=== PATIENT | female | born 1975 | race African-American/Black ===

== ENCOUNTER 2017-07-01 16:02 | Emergency (ER) | payer OTHER ==
[~2017-07-01] VITALS: Ht 165.1 cm; Wt 122.3 kg
[~2017-07-01 16:02] MED LIST: BACTRIM,SEPT1 TABLET PO; COZAAR100 MG PO; ENDOCET 5-3251 EACH PO; FLONASE16 G1 BOTH NARES; GABAPENTIN100 MG PO; GLUCOPHAGE500 MG PO; HUMALOG100 UNITS/ SQ; IBUPROFEN800 MG PO; LANTUS 10100 UNITS/ SC; LANTUS100 UNIT/1 SQ; LOSARTAN POTAS100 MG PO; LYRICA50 MG PO; METFORMIN HCL500 M1 PO; METFORMIN HCL500 MG PO; NEURONTIN600 MG PO; NIFEDIPINE ER60 MG PO; OXYCODONE-APAP1 EAC6 PO; PEN-VEE K,VEET500 MG PO; PERCOCET 10/1 TABLET PO; PERCOCET 5/31 TABLET PO; PRAVASTATIN SOD40 MG PO; PROCARDIA XL60 MG PO; SOMA350 MG PO; TRAMADOL HCL50 MG PO; ULTRACET1 TABLET PO; ZYRTEC10 M2 PO
[2017-07-01] MEDS ORDERED: ZITHROMAX Z-PA250 MG PO (18:46)
[2017-07-01 19:07] VITALS: BP 200/87
== END 2017-07-01 19:14 | disposition home or self-care (01) ==
LOC: EME 16:02
DX: S39.012A Strain of muscle, fascia and tendon of lower back, initial encounter (principal); S16.1XXA Strain of muscle, fascia and tendon at neck level, initial encounter; R51 Headache; V49.40XA Driver injured in collision with unspecified motor vehicles in traffic accident, initial encounter; Y92.410 Unspecified street and highway as the place of occurrence of the external cause; G89.29 Other chronic pain; M47.896 Other spondylosis, lumbar region; M50.30 Other cervical disc degeneration, unspecified cervical region; E11.9 Type 2 diabetes mellitus without complications; Z79.84 Long term (current) use of oral hypoglycemic drugs
CPT/HCPCS: 72040; 72100; 99281; 99283; J1885